=== PATIENT | female | born 1955 | race Native Hawaiian/Other Pacific Islander ===

== ENCOUNTER 2016-11-05 08:57 | Outpatient (CLI) | payer OTHER ==
[2016-11-05] MEDS ORDERED: ALBUTEROL NEB 2.5 MG/3 ML INH ONE (10:00)
== END 2016-11-05 08:58 | disposition home or self-care (01) ==
LOC: RT 08:57
PROVIDERS: ATTEND Family Medicine
DX: R06.2 Wheezing (principal)
CPT/HCPCS: 94060; 94664; J7613

== ENCOUNTER 2016-11-06 11:49 | Outpatient (CLI) | payer OTHER ==
--- NOTE | 2016-11-06 17:20 | XRAY Report ---
BILATERAL KNEES: 11/06/2016 CLINICAL HISTORY: Pain. COMPARISON: None. FINDINGS: Three views of each knee. LEFT KNEE: Medial knee joint space narrowing and spurring. Well-maintained lateral knee joint space a nd patellofemoral articulation. No fracture, malalignment, or joint effusion. Mild lateral tilting of the patella. RIGHT KNEE: Medial knee joint space narrowing and spurring. Lateral knee joint well-maintained. Rojas lofemoral articulation well-maintained with minor lateral tilt of the patella. No fracture, malalignm ent, or joint effusion. IMPRESSION: BILATERAL KNEE JOINT DEGENERATIVE CHANGES, MOST MARKED MEDIALLY. JOB #: [id number] JOB #:[id number]
== END 2016-11-06 11:50 | disposition home or self-care (01) ==
LOC: DI 11:49
PROVIDERS: ATTEND Family Medicine
DX: M17.0 Bilateral primary osteoarthritis of knee (principal)